=== PATIENT | male | born 1960 | race Caucasian/White ===

== ENCOUNTER 2020-06-20 15:50 | Emergency (ER) | payer OTHER ==
[2020-06-20] MEDS ORDERED: Bupivacaine 0.5% 10 ML VIAL ONE (16:07)
--- NOTE | 2020-06-20 16:20 | RAD ---
Radiograph right fifth digit 3 views: 06/20/2020 4:15 PM HISTORY: 60-year-old male status post acute traumatic injury to right pinky finger FINDINGS: Overlying bandages obscure fine bony detail and soft tissue detail throughout the digit. There are ol d healed fracture deformities of base of fifth proximal phalanx and proximal and mid portions of fifth middle phalanx. No grossly displaced acute fracture is identified. No dislocation. IMPRESSION: 1.) No grossly displaced acute fracture identified. 2) old healed fractures
[2020-06-20] MEDS ORDERED: Bacitracin 1 PK ONE (16:35)
== END 2020-06-20 17:00 ==
LOC: NAV ERS 15:50
DX: S61.216A Laceration without foreign body of right little finger without damage to nail, initial encounter (principal); I13.2 Hypertensive heart and chronic kidney disease with heart failure and with stage 5 chronic kidney disease, or end stage renal disease; I50.9 Heart failure, unspecified; N18.6 End stage renal disease; N40.0 Benign prostatic hyperplasia without lower urinary tract symptoms; K21.9 Gastro-esophageal reflux disease without esophagitis; W22.03XA Walked into furniture, initial encounter
CPT/HCPCS: 12002; J3490